=== PATIENT | male | born 2000 | race Caucasian/White ===

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

== ENCOUNTER → 2022-01-27 | Outpatient (CLI) | payer MEDICAID ==
[2022-01-27 20:26] LABS: Albumin 5.1 g/dL (3.8-4.9); Albumin/Globulin Ratio 2.57 (1.60-3.17); Anion Gap 11.7 mmol/L (10.00-18.00); BUN/Creat Ratio 17.2 Ratio (12.00-20.00); Blood Urea Nitrogen 18.4 mg/dL (9.0-27.0); Calcium 9.9 mg/dL (8.7-10.3); Follicle Stimulating Hormone 1.9 mIU/mL; Luteinizing Hormone 6.2 mIU/mL; Non-African American GFR(CKD) 100.1 (60.0-200.0); Potassium 4.5 mmol/L (3.5-5.5); Prolactin 11.2 ng/mL (2.100-17.700); Total Bilirubin 0.6 mg/dL (0.30-1.20); Total Protein 7.1 g/dL (6.2-8.2)
[2022-01-28 11:26] LABS: Thyroid Stim Immun Quant <0.10 IU/L (<0.10)
== END | disposition home or self-care (01) ==
LOC: LABWHC1 11:51
PROVIDERS: ATTEND Internal Medicine Endocrinology, Diabetes & Metabolism
DX: D35.2 Benign neoplasm of pituitary gland (principal)
CPT/HCPCS: 36415; 80053; 82024; 82533; 83001; 83002; 84146; 84305; 84445

== ENCOUNTER → 2022-02-04 | Outpatient (CLI) | payer MEDICAID ==
--- NOTE | 2022-02-05 14:06 | NM ---
EXAMINATION TYPE: NM thyroid image w uptake DATE OF EXAM: 02/05/2022 COMPARISON: Ultrasound thyroid 12/24/2021 HISTORY: E05.90 TECHNIQUE: Thyroid iodine uptake is calculated and images performed after the oral administration of 312 uCi 1-123 Capsule. FINDINGS: There is normal distribution of activity throughout the gland. The 4 hour iodine uptake is calculated at 10.9% (normal range 8-14%). The 24-hour iodine uptake is calculated at 22.8% (normal r micheal 15-35%). Symmetric and homogenous uptake of the radio pharmaceutical is noted within the thyroid gland IMPRESSION: Normal thyroid scan and uptake.
== END | disposition home or self-care (01) ==
LOC: RADNMMAIN 08:52
PROVIDERS: ATTEND Internal Medicine Endocrinology, Diabetes & Metabolism
DX: E05.90 Thyrotoxicosis, unspecified without thyrotoxic crisis or storm (principal)
CPT/HCPCS: 78014; A9516

== ENCOUNTER → 2022-02-07 | Outpatient (CLI) | payer MEDICAID ==
--- NOTE | 2022-02-07 11:01 | MR ---
EXAMINATION TYPE: MR pituitary wo/w con DATE OF EXAM: 02/07/2022 COMPARISON: NONE HISTORY: Pituitary adenoma with TSH production. TECHNIQUE: Multiplanar, multisequence images of the brain and brainstem is performed without and with IV contras t, utilizing 8 mL intravenous Gadavist . Exam is performed under pituitary gland protocol. FINDINGS: Pituitary gland normal in size within sella turcica. Pituitary stalk shows normal enhanceme nt in the midline. Suprasellar cistern is maintained postcontrast images show fairly homogeneous enha ncement without area of nonenhancement to suggest microadenoma. Optic chiasm is not effaced. Midline structures demonstrate normal morphology. The craniocervical junction appears within normal limits. No hydrocephalus. IMPRESSION: No MRI evidence for acute pituitary micro or macroadenoma.
== END | disposition home or self-care (01) ==
LOC: RADMRIMAIN 10:02
PROVIDERS: ATTEND Internal Medicine Endocrinology, Diabetes & Metabolism
DX: D35.2 Benign neoplasm of pituitary gland (principal)
CPT/HCPCS: 70553; A9585

== ENCOUNTER → 2022-06-05 | Outpatient (CLI) | payer MEDICAID ==
[2022-06-05 23:16] LABS: African American GFR (CKD) 102.3 (60.0-200.0); Albumin 4.8 g/dL (3.8-4.9); Albumin/Globulin Ratio 2.69 (1.60-3.17); Anion Gap 10.7 mmol/L (10.00-18.00); BUN/Creat Ratio 13.56 Ratio (12.00-20.00); Calcium 9.3 mg/dL (8.7-10.3); Carbon Dioxide 23.7 mmol/L (20.0-27.5); Globulin 1.8 g/dL (1.6-3.3); Non-African American GFR(CKD) 88.3 (60.0-200.0); Potassium 4.4 mmol/L (3.5-5.5); T4, Free (Free Thyroxine) 1.49 ng/dL (0.830-1.430); Total Bilirubin 0.4 mg/dL (0.30-1.20); Total Protein 6.6 g/dL (6.2-8.2)
== END | disposition home or self-care (01) ==
LOC: LABWHC1 14:26
PROVIDERS: ATTEND Internal Medicine Endocrinology, Diabetes & Metabolism
DX: D35.2 Benign neoplasm of pituitary gland (principal)
CPT/HCPCS: 36415; 80053; 84439; 84443; 84481

== ENCOUNTER → 2022-09-15 | Outpatient (CLI) | payer MEDICAID ==
[2022-09-16 02:52] LABS: Prolactin 9.9 ng/mL (2.100-17.700); T4, Free (Free Thyroxine) 1.39 ng/dL (0.830-1.430)
== END | disposition home or self-care (01) ==
LOC: LABWHC1 16:21
PROVIDERS: ATTEND Internal Medicine Endocrinology, Diabetes & Metabolism
DX: D35.2 Benign neoplasm of pituitary gland (principal)
CPT/HCPCS: 36415; 82040; 83520; 84146; 84270; 84305; 84403; 84439; 84443; 84480

== ENCOUNTER → 2023-06-18 | Outpatient (CLI) | payer MEDICAID ==
[2023-06-18 20:14] LABS: Basophils # (A) 0.02 X 10*3/uL (0.00-0.10); Basophils % (A) 0.3 %; Eosinophils % (A) 1.6 %; HCT 41.3 % (39.6-50.0); HGB 14.2 d/dL (13.0-17.0); Lymphocytes % (A) 24.3 %; MCH 30.3 pg (27.0-32.0); MCHC 34.4 d/dL (32.0-37.0); MCV 88.1 FL (80.0-97.0); Mean Platelet Volume 10.9 FL (9.5-12.2); Monocytes # (A) 0.52 X 10*3/uL (0.20-1.00); Monocytes % (A) 8.4 %; NRBC Per 100 WBC 0 X 10*3/uL (0.00-0.01); Neutrophils # (A) 4.02 X 10*3/uL (1.80-7.70); Neutrophils % (A) 65.1 %; Platelet Count 214 X 10*3/uL (140-440); RBC 4.69 X 10*6/uL (4.40-5.60); RDW 13.2 % (11.5-14.5); WBC 6.18 X 10*3/uL (4.50-10.00)
[2023-06-18 20:23] LABS: ALT 27 U/L (10-49); AST 28 U/L (14-35); Albumin 5.1 d/dL (3.8-4.9); Albumin/Globulin Ratio 3.19 Ratio (1.60-3.17); Alkaline Phosphatase 70 U/L (41-126); BUN/Creat Ratio 14.08 Ratio (12.00-20.00); Blood Urea Nitrogen 16.9 mg/dL (9.0-27.0); C Reactive Protein <0.30 mg/dL (0.00-0.80); Calcium 9.7 mg/dL (8.7-10.3); Carbon Dioxide 25.6 mmol/L (21.6-31.8); Chloride 105 mmol/L (96-109); Globulin 1.6 d/dL (1.6-3.3); Glucose 69 mg/dL (70-110); Sodium 142 mmol/L (135-145); T4, Free (Free Thyroxine) 1.79 ng/dL (0.80-1.80); Total Protein 6.7 d/dL (6.2-8.2)
[2023-06-18 21:13] LABS: Erythrocyte Sedimentation Rate <1 mm/Hr (0-15)
== END | disposition home or self-care (01) ==
LOC: LABWHC1 15:44
PROVIDERS: ATTEND Family Medicine
DX: E05.90 Thyrotoxicosis, unspecified without thyrotoxic crisis or storm (principal); R63.4 Abnormal weight loss
CPT/HCPCS: 36415; 80053; 84439; 84443; 84445; 84481; 85025; 85652; 86140; 86376